=== PATIENT | female | born 1960 | race American Indian/Alaskan Native ===

== ENCOUNTER 2018-03-28 22:50 | Emergency (ER) | payer SELFPAY ==
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
[2018-03-28 23:56] LABS: BASO % 0.8 % (0.0-2.0); EOS % 1.8 % (0.0-4.0); HEMOGLOBIN 9.8 g/dL (12.0-16.0); LYMPH % 37.1 % (20.0-40.0); MEAN CELL VOLUME 100.2 fl (81.0-99.0); MEAN CORPUSCULAR HEMOGLOBIN 33.7 pg (27.0-31.0); MEAN CORPUSCULAR HGB CONC 33.7 g/dL (33.0-37.0); MEAN PLATELET VOLUME 6.4 fl (7.2-11.7); MONO # 0.2 K/uL (0.0-0.8); MONO % 7.4 % (0.0-10.0); NEUT # 1.5 K/uL (1.8-7.0); NEUT % 52.9 % (50.0-75.0); NRBC % 0.2 % (0.0-0.0); RBC 2.9 Mil/uL (3.80-5.20); RED CELL DISTRIBUTION WIDTH 17.9 % (11.5-14.5); WHITE BLOOD COUNT 2.8 K/uL (4.8-10.8)
[2018-03-29 00:09] LABS: ALB/GLOB RATIO 1.3 (1.0-2.1); ALBUMIN 3.9 g/dL (3.5-5.0); ALT/SGPT 27 U/L (9-52); AST/SGOT 70 U/L (14-36); BLOOD UREA NITROGEN 15 mg/dl (7-17); CALCIUM 8.5 mg/dL (8.4-10.2); GFR AFRICAN-AMERICAN > 60; GFR NON-AFRICAN AMERICAN 57
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
[2018-03-29 01:39] VITALS: BP 128/84; PULSE 82; TEMP 98.7; O2SAT 98
[2018-03-29 01:48] VITALS: RESP 18
--- NOTE | 2018-03-29 08:08 | RAD ---
PROCEDURE: Left Foot Radiographs. HISTORY: pain COMPARISON: None. FINDINGS: BONES: No acute fracture or destructive bony lesion identified. Two compression screws are identified status post ORIF at the distal tibia with medial malleolus fracture apparently healed. JOINTS: Degenerative changes are seen throughout the medial tarsal metatarsal and talonavicular joints. Similar degenerative changes are also seen at the 1st metatarsophalangeal joint of the great toe interphalangeal joint. SOFT TISSUES: Normal. OTHER FINDINGS: None. IMPRESSION: No acute fracture dislocation. Status or after medial malleolar fracture now healed.
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
== END 2018-03-29 01:48 | disposition home or self-care (01) ==
LOC: H.ER 22:50
DX: M25.472 Effusion, left ankle (principal); F10.129 Alcohol abuse with intoxication, unspecified; D64.9 Anemia, unspecified
CPT/HCPCS: 73610; 73630; 80053; 85025; G0480